=== PATIENT | male | born 1960 | race Hispanic/Latino ===

== ENCOUNTER 2016-12-31 07:49 | Day surgery (SDC) | payer BC ==
[2016-12-04 14:30] VITALS: BMI 22.5
[2016-12-31] MEDS ORDERED: Meropenem 1 GM in Sodium Chloride 0.9% 100 ML IVPB SCH (09:15)
[2016-12-31 09:29] LABS: Hematocrit 43.8 % (42.0-52.0); Mean Platelet Volume 7.9 fL (7.4-10.4); Red Blood Cell (RBC) Count 4.51 mill/uL (4.70-6.10); White Blood Cell (WBC) Count 2.8 thou/uL (4.8-10.8)
[2016-12-31 09:51] LABS: Band 2 % (5-11); Neutrophil 52 % (42-75)
[2016-12-31] MEDS ORDERED: Midazolam HCl 2 mg/2 ml Vial ONE ×2 (12:00→12:42)
[2016-12-31] MEDS ORDERED: PHENYLEPHRINE-NS 100 MCG/ML 10 ML SYRINGE ONE (12:57)
[2016-12-31] MEDS ORDERED: Ondansetron HCl/PF 4 MG/2 ML Vial ONE (12:57)
[2016-12-31] MEDS ORDERED: Lidocaine 1% PF 5 ML VIAL ONE (12:57)
[2016-12-31] MEDS ORDERED: Propofol 200 MG/20 ML VIAL ONE (12:57)
--- NOTE | 2016-12-31 13:35 | OP ---
DATE OF SURGERY: 12/31/2016 PREOPERATIVE DIAGNOSES: History of elevated PSA of 6.3, previous biopsy negative for malignancy. POSTOPERATIVE DIAGNOSES: History of elevated PSA of 6.3, previous biopsy negative for malignancy. PROCEDURE: Transrectal ultrasound, 12 core needle biopsy. SURGEON: Afsaneh Olivier D.O. ANESTHESIA: TIVA. COMPLICATIONS: None apparent. DISPOSITION: To the day stay in stable condition. SPECIMEN: Twelve needle core prostate biopsy. INTRAOPERATIVE FINDINGS: Urethral length 3.7 with a 4.7, height 3.2, volume of 30 grams. Incidenta l small hypoechoic area in the left apex medial inclusive in the biopsy. INDICATIONS FOR THE PROCEDURE AND HISTORY: Mr. Mcgrath is a 56-year-old male with histor y of elevated PSA, previous biopsy negative for malignancy. As he presented with progressive increa se in PSA from 5.9 to 6.3, I advised regarding restaging prostate biopsy with a percent free demonst rating 24% probability of occult malignancy. The patient previously had a vasovagal response after the prior biopsy; therefore, cardiac clearance was obtained. He presents today for prostate biopsy under TIVA anesthesia. Risks and complications including, but not limited to, bleeding, pain, infec tion, injury to adjacent organs, urosepsis vasovagal episode, recurrent discussed with patient in de tail. All questions answered to his satisfaction, he desires to proceed without reservation. DESCRIPTION OF THE PROCEDURE: After an informed consent was signed, the patient is taken to the ope rating room, placed in lateral decubitus position. A transrectal ultrasound probe was passed after digital rectal exam demonstrating no significant nodules. Prostate volume was 30 grams with dimensi ons as above. Urethral length 3.7 with 4.7, height of 33.2 cm. We did find a small incidental hype rechoic lesion in the left apex mid region, which was included in the biopsy. No other lesions were appreciated. He tolerated the procedure well and was transported back to day stay in stable condit ion. He was discharged with ciprofloxacin for 5 days, Flomax prescription refill provided #30.
== END 2016-12-31 14:00 | disposition home or self-care (01) ==
LOC: SDC 07:49
PROVIDERS: ATTEND Urology
PROC: 0VB08ZX Excision of Prostate, Via Natural or Artificial Opening Endoscopic, Diagnostic (ICD-10-PCS; principal; 2016-12-31)
DX: N40.0 Benign prostatic hyperplasia without lower urinary tract symptoms (principal); I10 Essential (primary) hypertension; H81.09 Meniere's disease, unspecified ear; M85.80 Other specified disorders of bone density and structure, unspecified site; Z88.8 Allergy status to other drugs, medicaments and biological substances; Z79.899 Other long term (current) drug therapy; Z98.890 Other specified postprocedural states; Z86.010 Personal history of colon polyps
CPT/HCPCS: 36415; 85025; 88305; 88341; 88342; J2001; J2185; J2250; J2405; J2704; J7050

== ENCOUNTER 2017-05-05 16:26 | Outpatient (CLI) | payer BC ==
[2017-05-05 17:32] LABS: Hemoglobin 13.8 g/dL (14.0-18.0); Mean Corpuscular HGB CONC 34.5 g/dL (32.0-36.0); Mean Corpuscular Hemoglobin 33.2 pg (27.0-31.0); Mean Corpuscular Volume 96.3 fl (80.0-94.0); Mean Platelet Volume 7.7 fL (7.4-10.4); Platelet Count 153 thou/uL (130-400); RBC Distribution Width 11.5 % (11.5-14.5); Red Blood Cell (RBC) Count 4.16 mill/uL (4.70-6.10); White Blood Cell (WBC) Count 3.6 thou/uL (4.8-10.8)
[2017-05-05 17:39] LABS: PTT 28.6 SEC (22.9-36.1); Prothrombin Time 12.8 SEC (12.0-14.7)
[2017-05-05 17:42] LABS: Bilirubin Negative (Negative); Blood, Urine Negative (Negative); Clarity CLEAR (Clear); Glucose, Urine (Dipstick) 100 mg/dL (Negative); Leukocyte Negative (Negative); Nitrite Negative (Negative); Protein, Urine (Dipstick) Negative (Neg-Trace); Specific Gravity, Urine 1.011 (1.002-1.036); Urobilinogen 0.2 mg/dL (0.2-1.0); pH, Urine 6.5 (5.0-9.0)
[2017-05-05 17:45] LABS: Bacteria/HPF None Seen HPF (None Seen); Hyaline Casts/LPF 0-3 HYALINE CAST LPF (0-3 Hyaline); RBC/HPF 0-3 HPF (0-3); Squamous Epithelial None Seen HPF (0-3); WBC/HPF None Seen HPF (0-3)
--- NOTE | 2017-05-05 17:51 | RAD ---
TWO VIEWS OF THE CHEST 05/05/17 HISTORY: Preoperative evaluation. COMPARISON: 12/04/16. FINDINGS: The cardiac silhouette and pulmonary vasculature are within normal limits. The lungs remain hyperinfl ated but clear. Right convexed scoliosis thoracic spine is again present. There has been no interval change from the prior exam. IMPRESSION: Stable chest without evidence of an acute cardiopulmonary process. POS: [facility]
[2017-05-05 18:01] LABS: ALT (SGPT) 22 U/L (8-55); AST (SGOT) 19 U/L (5-34); Albumin 4.3 g/dL (3.5-5.0); Alkaline Phosphatase 58 U/L (40-150); Anion Gap 13 mmol/L (10-20); BUN (Urea Nitrogen) 15 mg/dL (8.4-25.7); Bilirubin, Total 0.5 mg/dL (0.2-1.2); Calc. Creatinine Clearance 0 mL/min (70-130); Calcium 9.6 mg/dL (7.8-10.44); Carbon Dioxide 23 mmol/L (22-29); Chloride 101 mmol/L (98-107); Estimated GFR-MDRD Greater than 90; Globulin 2.7 g/dL (2.4-3.5); Glucose 92 mg/dL (70-105); Potassium 3.7 mmol/L (3.5-5.1); Sodium 133 mmol/L (136-145)
== END 2017-05-05 16:27 | disposition home or self-care (01) ==
LOC: LABBT 16:26
PROVIDERS: ATTEND Urology
DX: Z01.818 Encounter for other preprocedural examination (principal); C61 Malignant neoplasm of prostate
CPT/HCPCS: 71046; 80053; 81001; 85027; 85610; 85730; 87081; 87086; 93005; 93010

== ENCOUNTER 2018-06-08 08:37 | Day surgery (SDC) | payer BC ==
--- NOTE | 2018-06-07 20:47 | HP ---
DATA OF VISIT: 06/08/2018, HISTORY OF PRESENT ILLNESS: Lennox Mcgrath is a very pleasant 58-year-old male with longstanding ulcerative colitis. The patient is doing very well on medical therapy. He has no rectal bleeding or hematochezia. The patient comes in for a colonoscopy for colon cancer surveillance because of longstanding ulcerative colitis. ALLERGIES: NONE. MEDICAL ILLNESSES: 1. Hypertension. 2. Ulcerative colitis. 3. Prostate cancer, status post surgery. SOCIAL HISTORY: The patient does not smoke or drink alcohol. PHYSICAL EXAMINATION: VITAL SIGNS: Pulse is 70, blood pressure 130/70. HEENT: Conjunctivae clear. CARDIOVASCULAR: First and second heart sounds heard. LUNGS: Clear to auscultation. ABDOMEN: Soft. No organomegaly. No tenderness. No masses. ADMITTING DIAGNOSIS: Longstanding ulcerative colitis, stable. PLAN: Colonoscopy for colon cancer surveillance. Job ID: [id number]
[2018-06-08] MEDS ORDERED: Lidocaine 1% PF 5 ML VIAL ONE (09:18)
[2018-06-08] MEDS ORDERED: PROPOFOL 200 MG/20 ML VIAL ONE (09:18)
[2018-06-08] MEDS ORDERED: PHENYLEPHRINE-NS 100 MCG/ML 10 ML SYRINGE ONE (09:18)
--- NOTE | 2018-06-08 13:21 | OP ---
DATE OF PROCEDURE: 06/08/2018 PROCEDURES PERFORMED: 1. Colonoscopy with biopsy. 2. Colonoscopy with polypectomy. PREOPERATIVE DIAGNOSIS: A 58-year-old male with longstanding ulcerative colitis, underwent colonoscopy for colon cancer. POSTOPERATIVE DIAGNOSES: 1. Sessile polyp, transverse colon. 2. Sessile polyp, descending colon. 3. Hemorrhoids. 4. Normal colonoscopy and no evidence of any colitis seen. DESCRIPTION OF PROCEDURE: The patient was placed on his left lateral position and was given sedation by Anesthesia Department. The rectal exam was done. The scope was advanced into the rectum. No lesions felt on rectal exam. A Pentax video colonoscope was introduced into the rectum and advanced all the way into the cecum. The patient had a very tortuous and redundant colon_. Abdominal compression was advanced all the way to the cecum. The mucosa appears normal throughout the colon with normal vascular pattern. No findings of any colitis seen. The patient had a sessile polyp over the transverse colon. This was removed with biopsy forceps . Another sessile polyp of the descending colon removed by snare cautery with good hemostasis. The sigmoid colon, no pathology seen. Rectal hemorrhoids. ENDOSCOPIC IMPRESSION: 1. Sessile polyp, transverse colon. 2. Sessile polyp, descending colon. Otherwise, normal exam. DISCHARGE PLANNING: This is a 58-year-old male came for colonoscopy because of longstanding ulcerative colitis for colon cancer surveillance. He underwent colonoscopy with polypectomy by biopsy. DISCHARGE RECOMMENDATIONS: 1. The patient advised to call me if he develops abdominal pain, hematochezia. 2. In the absence of any of his symptoms, come back to me in 2 weeks. Job ID: [id number] [facility]
== END 2018-06-08 12:54 | disposition home or self-care (01) ==
LOC: SDC 08:37
PROVIDERS: ATTEND Internal Medicine Gastroenterology
PROC: 0DBL8ZZ Excision of Transverse Colon, Via Natural or Artificial Opening Endoscopic (ICD-10-PCS; principal; 2018-06-08)
PROC: 0DBM8ZZ Excision of Descending Colon, Via Natural or Artificial Opening Endoscopic (ICD-10-PCS; principal; 2018-06-08)
DX: Z12.11 Encounter for screening for malignant neoplasm of colon (principal); D12.4 Benign neoplasm of descending colon; D12.3 Benign neoplasm of transverse colon; Q43.8 Other specified congenital malformations of intestine; K63.89 Other specified diseases of intestine; K64.9 Unspecified hemorrhoids; I10 Essential (primary) hypertension; Z88.8 Allergy status to other drugs, medicaments and biological substances; Z85.46 Personal history of malignant neoplasm of prostate; Z79.899 Other long term (current) drug therapy; Z98.890 Other specified postprocedural states
CPT/HCPCS: 88305; J2001; J2704

== ENCOUNTER 2019-12-22 07:48 | Outpatient (CLI) | payer BC ==
[2019-12-22] MEDS ORDERED: Magnevist 469MG/ML 20 ML VIAL ONE (13:08)
--- NOTE | 2019-12-22 16:03 | MRI ---
MRI OF THE PELVIS WITH AND WITHOUT CONTRAST 12/22/19 INDICATION: History or prostatectomy and PSA of 0.12 ng/ml. COMPARISON: Prior CT of the abdomen and pelvis dated 08/25/16. FINDINGS: 14 mL of Multihance was utilized for the examination. There are postprocedural changes of a total prostatectomy. No residual soft tissue mass, area of rest ricted diffusion or abnormal enhancement is seen involving the prostatic bed to suggest recurrent dis ease. No pathologically enlarged lymph nodes are evident. No free fluid is evident. There is mild pia dder wall thickening. Bone marrow signal intensity appears within normal limits. IMPRESSION: Postprocedural change of a total prostatectomy. No definite residual soft tissue mass, abnormal regio n of enhancement or region of restricted diffusion is seen within the prostatic bed to suggest locali zed recurrence. POS: [facility]
== END 2019-12-22 07:49 | disposition home or self-care (01) ==
LOC: TBSIIMAG 07:48
PROVIDERS: ATTEND Urology
DX: C61 Malignant neoplasm of prostate (principal); Z90.79 Acquired absence of other genital organ(s)
CPT/HCPCS: 72197; A9579

== ENCOUNTER 2019-12-26 07:58 | Outpatient (CLI) | payer BC ==
[2019-12-26] MEDS ORDERED: Iopamidol 370 76% 100 ML VIAL ONE (09:04)
--- NOTE | 2019-12-26 09:26 | CT ---
CT ABDOMEN AND PELVIS WITH and without IV CONTRAST CLINICAL INFORMATION: History of prostate cancer. PSA levels are continuing to increase. COMPARISON: 08/25/2016 Technique: Multiple contiguous axial CT images are obtained through the abdomen and pelvis with IV contrast. Cor onal reformatted images are provided. FINDINGS: Lower Chest: Small 5 mm pulmonary nodule present posterior right lung base. No additional pulmonary n odule or mass is seen. There is herniation of fat at the posterior inferior right hemidiaphragm which is a stable finding. Vessels: Minimal vascular calcifications are present. Abdomen: Portal vein:Patent Gallbladder: Within normal limits for CT imaging. Liver: within normal limits. Spleen: within normal limits. Pancreas: within normal limits. Adrenals: within normal limits. Kidneys: Tiny subcentimeter too small to characterize hypodense lesion is again seen inferior pole le ft kidney. Kidneys otherwise have a normal CT appearance bilaterally without hydronephrosis or enhancing renal lesion. No renal or ureteral calculi are seen bilaterally. Bowel: Normal caliber. Appendix: The appendix is visualized and normal in caliber. Peritoneum: No ascites or free air; no fluid collection. Mesentery and Retroperitoneum: Minimal nonspecific haziness central mesentery. No enlarged lymph node s are seen within the abdomen or pelvis. Abdominal Wall: within normal limits. Pelvis: Reproductive Organs: Evidence of prostatectomy. Previously seen enlargement of the seminal vesicles i s no longer visualized. No mass or enlarged lymph node is seen in the pelvis. Bladder: Incompletely distended but otherwise within normal limits. Bones: There are scattered areas of sclerosis within lumbar vertebral bodies, but these areas of scle rosis are at the endplates and laterally which are in region of osteophytes. Findings are thought to most likely be related to asymmetric endplate degenerative changes which have progressed from the prior exam in 2017. No additional suspicious sclerotic or lytic osseous lesions are identified. IMPRESSION: 1. Nonspecific 5 mm pulmonary nodule right lower lobe. 2. Evidence of prostatectomy. 3. No definitive findings seen to suggest metastatic disease.
--- NOTE | 2019-12-26 12:51 | NM ---
WHOLE BODY BONE SCAN: HISTORY: Malignant neoplasm of prostate RADIOPHARMACEUTICAL: 30 mCi technetium 99m-MDP injected intravenously COMPARISON: None CORRELATION: CT abdomen and pelvis from today FINDINGS: There scattered degenerative activity in the appendicular skeleton. Increased uptake in the right L4- 5 level is consistent with degenerative change. There is scoliosis of the spine. No other abnormal areas of tracer localization are seen in the skeleton to suggest metastatic disease . Tracer excretion through the kidneys is within normal limits. IMPRESSION: No scintigraphic evidence of osseous metastatic disease.
== END 2019-12-26 07:59 | disposition home or self-care (01) ==
LOC: CT 07:58
PROVIDERS: ATTEND Urology
DX: C61 Malignant neoplasm of prostate (principal); R91.1 Solitary pulmonary nodule; Z98.890 Other specified postprocedural states
CPT/HCPCS: 74178; 78306; A9503; Q9967

== ENCOUNTER 2020-12-05 06:58 | Outpatient (CLI) | payer BC | END 2020-12-05 06:59 | disposition home or self-care (01) | LOC: BICULT 06:58 | PROVIDERS: ATTEND Family Medicine | DX: R74.8 Abnormal levels of other serum enzymes (principal); K76.0 Fatty (change of) liver, not elsewhere classified | CPT/HCPCS: 76705 ==

== ENCOUNTER 2022-02-20 17:30 | Outpatient (CLI) | payer BC | END 2022-02-20 17:31 | disposition home or self-care (01) | LOC: SLEEPLAB 17:30 | PROVIDERS: ATTEND Family Medicine | DX: G47.33 Obstructive sleep apnea (adult) (pediatric) (principal); R06.83 Snoring; I10 Essential (primary) hypertension; G47.00 Insomnia, unspecified | CPT/HCPCS: 95800 ==

== ENCOUNTER 2023-02-23 09:01 | Outpatient (CLI) | payer BC | END 2023-02-23 09:02 | disposition home or self-care (01) | LOC: ULT 09:01 | PROVIDERS: ATTEND Family Medicine | DX: R10.13 Epigastric pain (principal) | CPT/HCPCS: 76700 ==

== ENCOUNTER 2024-11-23 08:15 | Outpatient (CLI) | payer BC | END 2024-11-23 08:16 | disposition home or self-care (01) | LOC: BICMAMMO 08:15 | PROVIDERS: ATTEND Internal Medicine Hematology & Oncology | DX: C61 Malignant neoplasm of prostate (principal); R59.0 Localized enlarged lymph nodes; M85.89 Other specified disorders of bone density and structure, multiple sites | CPT/HCPCS: 77080 ==

== ENCOUNTER 2024-12-23 08:08 | Outpatient (CLI) | payer BC ==
[2024-12-23] MEDS ORDERED: Iopamidol 370 76% 100 ML VIAL ONE (13:41)
== END 2024-12-23 08:09 | disposition home or self-care (01) ==
LOC: CT 08:08
PROVIDERS: ATTEND Urology
DX: R31.9 Hematuria, unspecified (principal)
CPT/HCPCS: 74178; Q9967